=== PATIENT | female | born 1950 | race Caucasian/White ===

== ENCOUNTER 2017-08-06 20:28 | Inpatient (IN) | payer MEDICARE ==
[2017-08-06] MEDS ORDERED: SODIUM CHLORIDE 0.9% 500 ML IV STA (20:57)
[2017-08-06] MEDS ORDERED: ADENOSINE 3 MG/ML 2 ML VIAL IVP STA ×2 (20:57)
[2017-08-06] MEDS ORDERED: SODIUM CHLORIDE 0.9% 1,000 ML IV STA (20:57)
[2017-08-06] MEDS ORDERED: METOPROLOL TARTRATE 5 MG/5 ML VIAL IVP STA (20:59)
--- NOTE | 2017-08-06 21:07 | ED ---
Arrhythmia/Palpitations HPI - General Chief Complaint: Arrhythmia/Palpitations Stated Complaint: Palpatitions Time Seen by Provider: 08/06/17 20:50 Source: patient, RN notes reviewed Mode of arrival: ambulatory Limitations: no limitations - History of Present Illness Initial Comments: This is a 67-year-old female history of SVT in the past who states she had the onset around 1:30 today of palpitations and some lightheadedness and passed heart rate. She did take 2 of her beta blockers without any relief she denies any fevers chills nausea vomiting sweats she has had cold symptoms she did take some NyQuil earlier today. No other symptoms reported no other modifying factors. MD Complaint: rapid heart beat, palpitations - Related Data Home Medications Medication Instructions Recorded Confirmed Aspirin 325 - 650 mg PO QID PRN 08/06/17 08/06/17 Metoprolol Succinate (ER) [Toprol 25 mg PO DAILY PRN 08/06/17 08/06/17 Xl] Allergies Allergy/AdvReac Type Severity Reaction Status Date / Time No Known Allergies Allergy Verified 08/06/17 21:32 Review of Systems ROS Statement: Those systems with pertinent positive or pertinent negative responses have been documented in the HPI. ROS Other: All systems not noted in ROS Statement are negative. Past Medical History Past Medical History: Supraventricular Tachycardia (SVT) History of Any Multi-Drug Resistant Organisms: None Reported Past Surgical History: No Surgical Hx Reported Past Psychological History: No Psychological Hx Reported Smoking Status: Never smoker Past Alcohol Use History: None Reported Past Drug Use History: None Reported General Exam - General Exam Comments Initial Comments: This is a well-developed well-nourished awake alert oriented 3 female Limitations: no limitations General appearance: alert, in no apparent distress Head exam: Present: atraumatic, normocephalic, normal inspection Eye exam: Present: normal appearance, PERRL, EOMI. Absent: scleral icterus, conjunctival injection, periorbital swelling ENT exam: Present: normal exam, mucous membranes moist Neck exam: Present: normal inspection. Absent: tenderness, meningismus, lymphadenopathy Respiratory exam: Present: normal lung sounds bilaterally. Absent: respiratory distress, wheezes, rales, rhonchi, stridor Cardiovascular Exam: Present: normal rhythm, tachycardia. Absent: systolic murmur, diastolic murmur, rubs, gallop, clicks GI/Abdominal exam: Present: soft, normal bowel sounds. Absent: distended, tenderness, guarding, rebound, rigid Extremities exam: Present: normal inspection, full ROM, normal capillary refill. Absent: tenderness, pedal edema, joint swelling, calf tenderness Back exam: Present: normal inspection Neurological exam: Present: alert, oriented X3, CN II-XII intact Psychiatric exam: Present: normal affect, normal mood Skin exam: Present: warm, dry, intact, normal color. Absent: rash Course Vital Signs 08/06/17 08/06/17 08/06/17 20:35 21:02 21:21 Temperature 97.4 F L Pulse Rate 194 H 184 H 90 Respiratory 18 18 18 Rate Blood Pressure 99/68 88/63 O2 Sat by Pulse 100 98 99 Oximetry 08/06/17 08/06/17 08/06/17 21:52 22:03 23:12 Temperature Pulse Rate 90 94 100 Respiratory 18 18 18 Rate Blood Pressure 90/62 96/58 92/61 O2 Sat by Pulse 99 96 97 Oximetry 08/06/17 23:57 Temperature Pulse Rate 96 Respiratory 18 Rate Blood Pressure 106/61 O2 Sat by Pulse 97 Oximetry - Reevaluation(s) Reevaluation #1: 08/07/17 00:10 The patient received first 6 mg of adenosine followed by 12 mg of adenosine the 12 mg worked briefly with the patient did regain the ST-T configuration. Subsequently IV beta gato was given with control of the rate. Reevaluation #2: 08/07/17 00:11 The patient is feeling improved after control the rate hour the troponin is elevated. EKG Findings - EKG Results: EKG: interpreted by ERMD (Symmetric her tachycardia rate was 95 QRS 86 QT cyst QTc to 48/[address] configuration) Medical Decision Making - Medical Decision Making I did discuss findings the patient family the patient she will be admitted for evaluation of elevated troponin and the SVT. Patient currently is asymptomatic her blood pressure is slightly lower than what she normally has she states. The lower blood pressure may be due to the extra beta gato the patient ingested tonight. She is asymptomatic at this time no lightheadedness or dizziness no generalized weakness - Lab Data Result diagrams: 08/06/17 20:43 08/06/17 20:43 Lab Results 06/12/18 06/12/18 06/12/18 Range/Units 20:43 20:43 20:43 WBC 6.9 (3.8-10.6) k/uL RBC 4.25 (3.80-5.40) m/uL Hgb 13.8 (11.4-16.0) gm/dL Hct 41.4 (34.0-46.0) % MCV 97.3 (80.0-100.0) fL MCH 32.4 (25.0-35.0) pg MCHC 33.3 (31.0-37.0) g/dL RDW 14.0 (11.5-15.5) % Plt Count 288 (150-450) k/uL Neutrophils % 57 % Lymphocytes % 27 % Monocytes % 8 % Eosinophils % 3 % Basophils % 0 % Neutrophils # 3.9 (1.3-7.7) k/uL Lymphocytes # 1.9 (1.0-4.8) k/uL Monocytes # 0.6 (0-1.0) k/uL Eosinophils # 0.2 (0-0.7) k/uL Basophils # 0.0 (0-0.2) k/uL PT (9.0-12.0) sec INR (<1.2) APTT (22.0-30.0) sec Sodium 143 (137-145) mmol/L Potassium 4.3 (3.5-5.1) mmol/L Chloride 106 (98-107) mmol/L Carbon Dioxide 22 (22-30) mmol/L Anion Gap 15 mmol/L BUN 17 (7-17) mg/dL Creatinine 0.72 (0.52-1.04) mg/dL Est GFR (CKD-EPI)AfAm >90 (>60 ml/min/1.73 sqM) Est GFR (CKD-EPI)NonAf 87 (>60 ml/min/1.73 sqM) Glucose 146 H (74-99) mg/dL Calcium 8.2 L (8.4-10.2) mg/dL Magnesium 2.0 (1.6-2.3) mg/dL Total Bilirubin 0.3 (0.2-1.3) mg/dL AST 34 (14-36) U/L ALT 44 (9-52) U/L Alkaline Phosphatase 101 (38-126) U/L Total Creatine Kinase 59 (30-135) U/L CK-MB (CK-2) 0.8 (0.0-2.4) ng/mL CK-MB (CK-2) Rel Index 1.4 Troponin I 0.047 H* (0.000-0.034) ng/mL Total Protein 5.8 L (6.3-8.2) g/dL Albumin 3.1 L (3.5-5.0) g/dL TSH 6.020 H (0.465-4.680) mIU/L 08/06/17 Range/Units 20:43 WBC (3.8-10.6) k/uL RBC (3.80-5.40) m/uL Hgb (11.4-16.0) gm/dL Hct (34.0-46.0) % MCV (80.0-100.0) fL MCH (25.0-35.0) pg MCHC (31.0-37.0) g/dL RDW (11.5-15.5) % Plt Count (150-450) k/uL Neutrophils % % Lymphocytes % % Monocytes % % Eosinophils % % Basophils % % Neutrophils # (1.3-7.7) k/uL Lymphocytes # (1.0-4.8) k/uL Monocytes # (0-1.0) k/uL Eosinophils # (0-0.7) k/uL Basophils # (0-0.2) k/uL PT 12.7 H (9.0-12.0) sec INR 1.3 H (<1.2) APTT 24.9 (22.0-30.0) sec Sodium (137-145) mmol/L Potassium (3.5-5.1) mmol/L Chloride (98-107) mmol/L Carbon Dioxide (22-30) mmol/L Anion Gap mmol/L BUN (7-17) mg/dL Creatinine (0.52-1.04) mg/dL Est GFR (CKD-EPI)AfAm (>60 ml/min/1.73 sqM) Est GFR (CKD-EPI)NonAf (>60 ml/min/1.73 sqM) Glucose (74-99) mg/dL Calcium (8.4-10.2) mg/dL Magnesium (1.6-2.3) mg/dL Total Bilirubin (0.2-1.3) mg/dL AST (14-36) U/L ALT (9-52) U/L Alkaline Phosphatase (38-126) U/L Total Creatine Kinase (30-135) U/L CK-MB (CK-2) (0.0-2.4) ng/mL CK-MB (CK-2) Rel Index Troponin I (0.000-0.034) ng/mL Total Protein (6.3-8.2) g/dL Albumin (3.5-5.0) g/dL TSH (0.465-4.680) mIU/L - Radiology Data Radiology results: report reviewed (I did review the imaging and reports no acute findings), image reviewed Critical Care Time Critical Care Time: Yes Critical Care Time: 35 minutes of critical care time which includes initial presentation with history physical labs x-rays multiple re-evaluations the patient response to therapy discuss with the patient family regarding findings discussion with the admission physician documentation of the above Disposition Clinical Impression: Supraventricular tachycardia, Hypotensive episode, Elevated troponin I level Disposition: ADMITTED IP TO THIS [facility] Condition: Stable Referrals: None,Stated [Primary Care Provider] - 1-2 days
[2017-08-06 21:08] LABS: Basophils % (A) 0 %; Eosinophils # (A) 0.2 k/uL (0-0.7); Eosinophils % (A) 3 %; HCT 41.4 % (34.0-46.0); HGB 13.8 gm/dL (11.4-16.0); Lymphocytes # (A) 1.9 k/uL (1.0-4.8); Lymphocytes % (A) 27 %; MCH 32.4 pg (25.0-35.0); MCHC 33.3 g/dL (31.0-37.0); MCV 97.3 fL (80.0-100.0); Mean Platelet Volume 7.4; Monocytes # (A) 0.6 k/uL (0-1.0); Monocytes % (A) 8 %; Neutrophils # (A) 3.9 k/uL (1.3-7.7); Neutrophils % (A) 57 %; Platelet Count 288 k/uL (150-450); RBC 4.25 m/uL (3.80-5.40); WBC 6.9 k/uL (3.8-10.6)
[2017-08-06 21:18] LABS: INR 1.3 (<1.2); Partial Thromboplastin Time 24.9 sec (22.0-30.0); Prothrombin Time 12.7 sec (9.0-12.0)
--- NOTE | 2017-08-06 21:20 | XR ---
EXAMINATION TYPE: XR chest 2V DATE OF EXAM: 08/06/2017 COMPARISON: NONE HISTORY: Palpitations. Dyspnea. TECHNIQUE: Frontal and lateral views of the chest are obtained. FINDINGS: There is no heart failure nor confluent pneumonic infiltrate. There are chest leads. Costo phrenic angles are clear. Thoracic aorta is atheromatous. Bony thorax is intact. IMPRESSION: No active cardiopulmonary disease. Normal heart.
[2017-08-06 21:22] LABS: ALT 44 U/L (9-52); AST 34 U/L (14-36); Albumin 3.1 g/dL (3.5-5.0); Alkaline Phosphatase 101 U/L (38-126); Anion Gap 15 mmol/L; Blood Urea Nitrogen 17 mg/dL (7-17); Calcium 8.2 mg/dL (8.4-10.2); Carbon Dioxide 22 mmol/L (22-30); Chloride 106 mmol/L (98-107); Glucose 146 mg/dL (74-99); Potassium 4.3 mmol/L (3.5-5.1); Sodium 143 mmol/L (137-145); Total Bilirubin 0.3 mg/dL (0.2-1.3); Total Protein 5.8 g/dL (6.3-8.2)
[2017-08-06 21:42] LABS: Creatine Kinase MB 0.8 ng/mL (0.0-2.4)
[2017-08-06 21:45] LABS: Troponin I 0.047 ng/mL (0.000-0.034)
[2017-08-07] MEDS ORDERED: NALOXONE 0.4 MG/ML 1 ML VIAL IV PRN (00:17)
[2017-08-07] MEDS ORDERED: METOPROLOL SUCCINATE (ER) 25 MG TAB.ER.24H PO PRN (00:21)
[2017-08-07] MEDS ORDERED: NITROGLYCERIN SL TABS 0.4 MG TAB SUBLINGUAL PRN (00:22)
[2017-08-07] MEDS ORDERED: HEPARIN SODIUM,PORCINE 5,000 UNIT/ML 1 ML VIAL IV ONE (00:22)
[2017-08-07] MEDS ORDERED: HEPARIN SODIUM,PORCINE/D5W PMX 25,000 UNIT in DEXTROSE/WATER 1 500ML.BAG IV SCH (00:30)
--- NOTE | 2017-08-07 00:39 | P.HPIM ---
History of Present Illness H&P Date: 08/07/17 Chief Complaint: Palpitations heart racing The patient is a 67-year-old female with a past medical history of paroxysmal SVTs who presents to the ER chief complaint of feeling like her heart is racing, she denies any chest pain, she reports her symptoms began approximately 1:30 PM and woke her from sleep, she denies any associated shortness of breath but does report episodes of lightheadedness, she denies any focal weakness slurred speech, or facial droop. The patient does report approximately 4 day history of cold-like symptoms described as runny nose sore throat and head congestion, she denies any subjective fevers chills or night sweats. She reports taking some NyQuil prior to the onset of her symptoms. The patient does report that she took additional doses of her metoprolol, she reports that she's been hospitalized approximately 3 previous times for similar complaints and also states that she has been taking magnesium supplements which seemed to have helped significantly. In the ER presentation the patient was noted to be SVTs with a heart rate in the mid 180s, she was given 2 doses of adenosine and IV metoprolol and a liter of IV fluids. Workup included admission labs patient was noted to have elevated serum troponin at .047 and TSH 6.020 and serum magnesium of 2.0. Checks x-ray showed no acute cardiopulmonary process Review of Systems All other 12 point review of systems are negative except for HPI Past Medical History Past Medical History: Supraventricular Tachycardia (SVT) History of Any Multi-Drug Resistant Organisms: None Reported Past Surgical History: No Surgical Hx Reported Past Psychological History: No Psychological Hx Reported Smoking Status: Never smoker Past Alcohol Use History: None Reported Past Drug Use History: None Reported Medications and Allergies Home Medications Medication Instructions Recorded Confirmed Type Aspirin 325 - 650 mg PO QID PRN 08/06/17 08/06/17 History Metoprolol Succinate (ER) [Toprol 25 mg PO DAILY PRN 08/06/17 08/06/17 History Xl] Allergies Allergy/AdvReac Type Severity Reaction Status Date / Time No Known Allergies Allergy Verified 08/06/17 21:32 Physical Exam Vitals: Vital Signs Temp Pulse Resp BP Pulse Ox 08/06/17 23:57 96 18 106/61 97 08/06/17 23:12 100 18 92/61 97 08/06/17 22:03 94 18 96/58 96 08/06/17 21:52 90 18 90/62 99 08/06/17 21:21 90 18 88/63 99 08/06/17 21:02 184 H 18 99/68 98 08/06/17 20:35 97.4 F L 194 H 18 100 Intake and Output 08/06/17 08/06/17 08/07/17 14:59 22:59 06:59 Other: Weight 45.359 kg Constitutional: No acute distress, conversant, pleasant Eyes: Anicteric sclerae, moist conjunctiva, no lid-lag, PERRLA ENMT: NC/AT,Oropharynx clear, no erythema, exudates Neck:Supple, FROM, no masses, or JVD, No carotid bruits; No thyromegaly Lungs: Clear to auscultation, Clear to percussion, Normal respiratory effort, no accessory muscle use Cardiovascular: Heart regular in rate and rhythm, No murmurs, gallops, or rubs no peripheral edema Abdominal: Soft Nontender, nom distended, no guarding, no rebound or rigidity, Normoactive bowel sounds No hepatomegaly, No splenomegaly, No palpable mass No abdominal wall hernia noted Skin: Normal temperature, tone, texture, turgor, No induration No subcutaneous nodules, No rash, lesions, No ulcers Extremities:No digital cyanosis No clubbing, Pedal pulses intact and symmetrical Radial pulses intact and symmetrical Normal gait and station, No calf tenderness Psychiatric: Alert and oriented to person, place and time, Appropriate affect Intact judgement Neuro: Muscles Strength 5/5 in all 4 extremities, Sensation to light touch grossly present throughout, Cranial nerves II-XII grossly intact. No focal sensory deficits Results CBC & Chem 7: 08/06/17 20:43 08/06/17 20:43 Labs: Abnormal Lab Results - Last 24 Hours (Table) 08/06/17 08/06/17 08/06/17 Range/Units 20:43 20:43 20:43 PT 12.7 H (9.0-12.0) sec INR 1.3 H (<1.2) Glucose 146 H (74-99) mg/dL Calcium 8.2 L (8.4-10.2) mg/dL Troponin I 0.047 H* (0.000-0.034) ng/mL Total Protein 5.8 L (6.3-8.2) g/dL Albumin 3.1 L (3.5-5.0) g/dL TSH 6.020 H (0.465-4.680) mIU/L Assessment and Plan (1) Supraventricular tachycardia Current Visit: Yes Status: Acute Code(s): I47.1 - SUPRAVENTRICULAR TACHYCARDIA SNOMED Code(s): 9106729 (2) Hypotensive episode Current Visit: Yes Status: Acute Code(s): I95.9 - HYPOTENSION, UNSPECIFIED SNOMED Code(s): 27715955 (3) Elevated troponin I level Current Visit: Yes Status: Acute Code(s): R74.8 - ABNORMAL LEVELS OF OTHER SERUM ENZYMES SNOMED Code(s): 386575466 Plan: The patient is admitted to the telemetry unit after presenting with SVT anticipated greater than 2 midnight stay, the patient was given 2 doses of adenosine in the ER along with IV metoprolol and a liter of fluids after she was noted to be hypotensive. Given the fact that the patient had elevated serum troponin I started her on IV heparin and will continue to cycle her troponins. Her TSH is elevated we'll order a free T3-T4 and check a 2-D echocardiogram. We'll plan to consult cardiology control clerk subassembly Dr. Stuart for further recommendations. We'll plan to continue the patient's home oral metoprolol and continue to follow her clinical course.
[2017-08-07] MEDS: SODIUM CHLORIDE 0.9% 1,000 ML IV SCH ×2 (00:51→14:30)
[2017-08-07] MEDS: ACETAMINOPHEN TAB 325 MG TAB PO PRN ×3 (03:54→17:52)
[2017-08-07] MEDS ORDERED: PANTOPRAZOLE 40 MG/10 ML VIAL IV SCH (09:00)
[2017-08-07] MEDS ORDERED: ASPIRIN 325 MG TAB PO SCH (09:00)
--- NOTE | 2017-08-07 09:08 | CONS ---
CONSULTATION This is a 67-year-old female who recently moved from [place] to [place] about a year back. She presented to the hospital with sustained palpitations with dizziness. She denied any chest discomfort. This began at about 1:30 and woke her up from her sleep. She has had cold-like symptoms for about the last 4 days, but no fever or chills. No cough. She has been taking some NyQuil. She takes metoprolol. She took additional dose of metoprolol, but this did not help. Past history of supraventricular tachycardia. She has had hundreds of episodes at least one definite episode of loss of consciousness, but during these episodes, she gets dizzy and lightheaded and feels warm. More importantly, she at this time her troponins were elevated and her TSH is also elevated (hypothyroidism). REVIEW OF SYSTEMS: She has no fever, chills, or rigors, but she has a runny nose and has a cold. No cough or expectoration. No nausea, vomiting, or diarrhea. No hematuria or dysuria. No strokes or seizures. She has palpitations. PAST MEDICAL HISTORY: Past medical history of SVT. No diabetes. No hypertension. Denies dyslipidemia. SOCIAL HISTORY: Never smoker. Alcohol, no significant alcohol use. MEDICATIONS: Medications at home include metoprolol succinate 25 mg p.o. daily. ALLERGIES: No known drug allergies. PHYSICAL EXAMINATION: On examination, her blood pressure is 106/61 mmHg, when she was here during SVT, her blood pressure was 88 mmHg consistent with the symptoms of dizziness and feeling warm and fuzzy. Her weight is 45 kilos. No JVD. No thyromegaly. No carotid bruits. Heart sounds S1, S2 are normal. No murmurs, no gallops, no rub. Breath sounds are clear. No rhonchi, no crackles. ABDOMEN: Soft, nontender. Extremities are warm. No edema. A 12-lead ECG shows supraventricular tachycardia with terminal P waves and a Wellens' sign consistent with AV imelda reentry. There is ST depression inferolaterally. Her 12-lead ECG during sinus rhythm following IV adenosine use shows normal MO, narrow QRS, normal ST segments. Heart rate 118 beats a minute. LABS: Labs were reviewed. Hemoglobin 13.8. Electrolytes are normal. Calcium is 8.2. Troponin 0.47 and 0.98. TSH is elevated at 6.02. IMPRESSION: 1. Recurrent supraventricular tachycardia. Patient has had hundreds of episodes associated with presyncope, one episode of syncope in the past. 2. Troponin leak consistent with myocardial injury secondary to supraventricular tachycardia. Notes no ST changes while in sinus rhythm. The patient is pain-free at this time. 3. The supraventricular tachycardia was adenosine sensitive was consistent with AV imelda reentry. 4. Elevated TSH, likely subclinical hypothyroidism. SUGGEST: Lipid panel, increase metoprolol to 50 mg p.o. daily, third troponin and 2D echo and Doppler study and observation on telemetry . MMODL / IJN: [id number] /
[2017-08-07] MEDS: ASPIRIN 81 MG PO SCH (11:06)
[2017-08-07] MEDS: METOPROLOL SUCCINATE (ER) 50 MG TAB.ER.24H PO SCH (11:06)
[2017-08-07 11:49] LABS: T4, Free (Free Thyroxine) 1.13 ng/dL (0.78-2.19)
--- NOTE | 2017-08-07 12:03 | ECHOF ---
Referral Reason:abnormal troponins MEASUREMENTS -------- HEIGHT: 160.0 cm WEIGHT: 45.4 kg BP: 101/62 RVIDd: 3.3 cm (< 3.3) IVSd: 0.9 cm (0.6 - 1.1) LVIDd: 4.3 cm (3.9 - 5.3) LVPWd: 0.9 cm (0.6 - 1.1) IVSs: 1.3 cm LVIDs: 2.8 cm LVPWs: 1.4 cm LA Diam: 2.9 cm (2.7 - 3.8) LAESV Index (A-L): 27.56 ml/m Ao Diam: 3.2 cm (2.0 - 3.7) AV Cusp: 2.1 cm (1.5 - 2.6) MV EXCURSION: 13.536 mm (> 18.000) MV EF SLOPE: 126 mm/s (70 - 150) EPSS: 0.3 cm MV E Gallo: 0.84 m/s MV DecT: 186 ms MV A Gallo: 0.56 m/s MV E/A Ratio: 1.51 RAP: 5.00 mmHg RVSP: 25.55 mmHg FINDINGS -------- Sinus rhythm. This was a technically good study. The left ventricular size is normal. Left ventricular wall thickness is normal. Overall left vent ricular systolic function is normal with, an EF between 55 - 60 %. The right ventricle is mildly enlarged. Normal LA size by volume 22+/-6 ml/m2. The right atrium is normal in size. The aortic valve is trileaflet and appears structurally normal. The mitral valve is normal. Mild tricuspid regurgitation present. Right ventricular systolic pressure is normal at < 35 mmHg. Trace/mild (physiologic) pulmonic regurgitation. The aortic root size is normal. Normal inferior vena cava with normal inspiratory collapse consistent with estimated right atrial pre ssure of 5 mmHg. There is no pericardial effusion. CONCLUSIONS -------- 1. Sinus rhythm. 2. This was a technically good study. 3. The left ventricular size is normal. 4. Left ventricular wall thickness is normal. 5. Overall left ventricular systolic function is normal with, an EF between 55 - 60 %. 6. The right ventricle is mildly enlarged. 7. Normal LA size by volume 22+/-6 ml/m2. 8. The right atrium is normal in size. 9. The aortic valve is trileaflet and appears structurally normal. 10. The mitral valve is normal. 11. Mild tricuspid regurgitation present. 12. Right ventricular systolic pressure is normal at < 35 mmHg. 13. Trace/mild (physiologic) pulmonic regurgitation. 14. The aortic root size is normal. 15. Normal inferior vena cava with normal inspiratory collapse consistent with estimated right atrial pressure of 5 mmHg. 16. There is no pericardial effusion. EXTRACTOR PULLER: Shabnam Puente RDCS
--- NOTE | 2017-08-07 13:04 | P.PN ---
Subjective Progress Note Date: 08/07/17 Principal diagnosis: SVT Patient is feeling okay this morning, no chest pain or shortness of breath. No palpitations. Objective - Vital Signs Vital signs: Vital Signs Temp 98.0 F 08/07/17 08:30 Pulse 77 08/07/17 08:30 Resp 18 08/07/17 08:30 BP 95/50 08/07/17 08:30 Pulse Ox 98 08/07/17 08:30 Intake & Output 08/06/17 08/07/17 08/07/17 18:59 06:59 18:59 Weight 45.359 kg - Exam Constitutional: No acute distress, conversant, pleasant Eyes:Anicteric sclerae, moist conjunctiva, no lid-lag, PERRLA, ENMT: Oropharynx clear, no erythema, exudates Neck: Supple, FROM, no masses, or JVD, No carotid bruits, No thyromegaly Lungs: Clear to auscultation, Clear to percussion, Normal respiratory effort, no accessory muscle use Cardiovascular: Heart regular in rate and rhythm, No murmurs, gallops, or rubs, No peripheral edema Abdominal: Soft, Nontender, no guarding, rebound or rigidity, Normoactive bowel sounds, No hepatomegaly, No splenomegaly, No palpable mass Skin: Normal temperature, tone, texture, turgor, no induration, No subcutaneous nodules, No rash, lesions, No ulcers Extremities: No digital cyanosis, No clubbing, Pedal pulses intact and symmetrical, Radial pulses intact and symmetrical, No calf tenderness Psychiatric: Alert and oriented to person, place and time, appropriate affect, intact judgement Neuro: Muscles Strength 5/5 in all 4 extremities, Sensation to light touch grossly present throughout, Cranial nerves II-XII grossly intact, no focal sensory deficits - Labs CBC & Chem 7: 08/06/17 20:43 08/06/17 20:43 Labs: Abnormal Lab Results - Last 24 Hours (Table) 08/06/17 08/06/17 08/06/17 Range/Units 20:43 20:43 20:43 PT 12.7 H (9.0-12.0) sec INR 1.3 H (<1.2) APTT (22.0-30.0) sec D-Dimer (<0.60) mg/L FEU Glucose 146 H (74-99) mg/dL Calcium 8.2 L (8.4-10.2) mg/dL Troponin I 0.047 H* (0.000-0.034) ng/mL Total Protein 5.8 L (6.3-8.2) g/dL Albumin 3.1 L (3.5-5.0) g/dL TSH 6.020 H (0.465-4.680) mIU/L 08/07/17 08/07/17 08/07/17 Range/Units 03:35 06:42 08:31 PT (9.0-12.0) sec INR (<1.2) APTT 47.5 H (22.0-30.0) sec D-Dimer (<0.60) mg/L FEU Glucose (74-99) mg/dL Calcium (8.4-10.2) mg/dL Troponin I 0.098 H* 0.087 H* (0.000-0.034) ng/mL Total Protein (6.3-8.2) g/dL Albumin (3.5-5.0) g/dL TSH (0.465-4.680) mIU/L 08/07/17 Range/Units 11:55 PT (9.0-12.0) sec INR (<1.2) APTT (22.0-30.0) sec D-Dimer 1.01 H (<0.60) mg/L FEU Glucose (74-99) mg/dL Calcium (8.4-10.2) mg/dL Troponin I (0.000-0.034) ng/mL Total Protein (6.3-8.2) g/dL Albumin (3.5-5.0) g/dL TSH (0.465-4.680) mIU/L Assessment and Plan Plan: #1 Recurrent acute supraventricular tachycardia with AV imelda reentry: Likely secondary to the recent cold Seen by cardiology Metoprolol dose increased D-dimer elevated, we'll order CT angiogram of the chest to rule out PE Troponin slightly elevated, likely leak secondary to the tachycardia, no further workup needed per cardio #2 Elevated TSH: Awaiting free T4
--- NOTE | 2017-08-07 13:36 | CT ---
EXAMINATION TYPE: CT angio chest DATE OF EXAM: 08/07/2017 COMPARISON: NONE HISTORY: Elevated heart rate. CT DLP: 371 mGycm. Automated Exposure Control for Dose Reduction was Utilized. CONTRAST: CTA scan of the thorax is performed with IV Contrast, patient injected with 73 mL of Isovue 370, pulm onary embolism protocol. MIP Images are created on CT scanner and reviewed. FINDINGS: LUNGS: There is mild biapical pleural parenchymal scarring. Additionally linear scarring is seen at t he lung bases dependently. The lungs are grossly clear, there is no concerning parenchymal mass or no dule identified. There is no pleural effusion or pneumothorax seen. The tracheobronchial tree is p atent. MEDIASTINUM: There is satisfactory enhancement of the pulmonary artery and its branches, there is no CT evidence for pulmonary embolism. There are no greater than 1 cm hilar or mediastinal lymph nodes. No cardiomegaly or pericardial effusion is seen. OTHER: There is a small hiatal hernia noted. Mild multilevel degenerative changes are seen of the tho racic spine. IMPRESSION: No evidence of pulmonary embolus. No focal dilation, pleural effusion or pneumothorax.
[2017-08-07] MEDS ORDERED: BENZOCAINE/MENTHOL LOZENG 1 EACH LOZENGE MUCOUS MEM PRN (20:42)
[2017-08-07] MEDS: KETOROLAC 30 MG/ML 1 ML VIAL IVP SCH (22:49)
[2017-08-08] MEDS: SODIUM CHLORIDE 0.9% 1,000 ML IV SCH ×2 (02:56→14:46)
[2017-08-08 06:36] VITALS: BP 104/62; PULSE 81; RESP 16; TEMP 99.4
[2017-08-08] MEDS: ASPIRIN 81 MG PO SCH (08:32)
[2017-08-08] MEDS: METOPROLOL SUCCINATE (ER) 50 MG TAB.ER.24H PO SCH (08:32)
[2017-08-08] MEDS: KETOROLAC 30 MG/ML 1 ML VIAL IVP SCH ×2 (08:44→14:42)
[2017-08-08 10:36] VITALS: BMI 17.4
--- NOTE | 2017-08-08 13:43 | P.PN ---
Subjective Mrs. Person is seen and examined resting comfortably in bed. Telemetry tracings indicate she has maintained sinus mechanism since converting yesterday in ED. Blood pressure 104/62 heart rate 81 afebrile maintaining oxygen saturation on room air. Echo cardiogram performed reveals preserved left ventricular systolic function with ejection fraction 55-60%. No evidence of valvular heart disease. CT angios performed is negative for pulmonary embolism. Objective - Vital Signs Vital signs: Vital Signs Temp 99.4 F 08/08/17 06:35 Pulse 81 08/08/17 06:35 Resp 16 08/08/17 06:35 BP 104/62 08/08/17 06:35 Pulse Ox 96 08/08/17 06:35 Intake & Output 08/07/17 08/08/17 08/08/17 18:59 06:59 18:59 Intake Total 240 Balance 240 Weight 44.5 kg 44.5 kg Intake: Oral 240 Other: # Voids 2 2 - Exam GENERAL: Well-appearing, well-nourished and in no acute distress. NECK: Supple without JVD or thyromegaly. LUNGS: Breath sounds clear to auscultation bilaterally. Respiration equal and unlabored. No wheezes, rales or rhonchi. HEART: Regular rate and rhythm without murmurs, rubs or gallops. S1 and S2 heard. EXTREMITIES: Normal range of motion, no edema. No clubbing or cyanosis. Peripheral pulses intact and strong. - Labs CBC & Chem 7: 08/06/17 20:43 08/06/17 20:43 Assessment and Plan Assessment: ASSESSMENT 1. Recurrent supraventricular tachycardia. Maintaining sinus mechanism after adenosine conversion. 2. Mild troponin leak consistent with injury secondary to SVT. 3. Elevated TSH subclinical hypothyroidism. PLAN Stable from a cardiac perspective to go home on Toprol 50 mg daily. Follow-up with Dr. Salvador in the office in 2 weeks. Discussion was had regarding possibility of ablation as an outpatient. Nurse Practitioner note has been reviewed, I agree with a documented findings and plan of care. Patient was seen and examined.
--- NOTE | 2017-08-09 07:57 | P.DS ---
Providers Date of admission: 08/07/17 00:23 Expected date of discharge: 08/08/17 Attending physician: Og Huynh MD Consults: 08/07/17 00:19 Consult Physician Routine Consulting Provider: Edith Stuart Consult Reason/Comments: Elevated troponin, PSVT Do you want consulting provider notified?: Yes 08/07/17 00:22 Consult Physician Routine Consulting Provider: Edith Stuart Consult Reason/Comments: SVTS Do you want consulting provider notified?: Yes Primary care physician: Stated None Hospital Course: 67-year-old female with a past medical history of paroxysmal SVTs who presented to the ER chief complaint of feeling like her heart is racing, she denied any chest pain, shortness of breath but does report episodes of lightheadedness. No focal weakness slurred speech, or facial droop. The patient did report approximately 4 day history of cold-like symptoms described as runny nose, sore throat and head congestion, she denied any subjective fevers, chills or night sweats. She reported taking some NyQuil prior to the onset of her symptoms. The patient did report that she took additional doses of her metoprolol. She was hospitalized approximately 3 previous times for similar complaints and also stated that she has been taking magnesium supplements which seemed to have helped significantly. In the ER patient was noted to have SVTs with a heart rate in the mid 180s, she was given 2 doses of adenosine and IV metoprolol and a liter of IV fluids and that converted her back to SR. Laboratory workup was essentially unremarkable except for mildly elevated troponin at .047, TSH 6.020 and serum magnesium of 2.0. Checks x-ray showed no acute cardiopulmonary process. Patient was subsequently admitted to the hospital for observation, she was placed on telemetry. She was evaluated by cardiology service who recommended doing an echocardiogram which showed normal EF. Her troponins were cycled and remained flat. The troponin leak was thought to be secondary to the SVT. Cardiology advised increasing her metoprolol dose to 50 mg daily. Because TSH was slightly elevated she had free T4 sent which came back within normal limits indicating mild subclinical hypothyroidism. No treatment is indicated for that. Throughout the hospitalization patient did not have any recurrent episodes of SVT, she was cleared by cardiology for discharge. She will need to follow up in the office with Dr. Dupree to look into doing an AV ablation to cure the SVT. She was eventually discharged home in a stable condition. Discharge diagnoses Recurrent SVT Mild troponin leak likely secondary to above Upper respiratory infection Patient Condition at Discharge: Stable Plan - Discharge Summary Discharge Rx Participant: No New Discharge Prescriptions: New Acetaminophen Tab [Tylenol] 650 mg PO Q6HR PRN tab PRN Reason: Mild Pain Or Fever > 100.5 Metoprolol Succinate (ER) [Toprol XL] 50 mg PO DAILY #30 tab.er.24h Continue Aspirin 325 - 650 mg PO QID PRN PRN Reason: Cold Symptoms Discontinued Metoprolol Succinate (ER) [Toprol Xl] 25 mg PO DAILY PRN PRN Reason: HEART PALPITATIONS Discharge Medication List Aspirin 325 - 650 mg PO QID PRN 08/06/17 [History] Acetaminophen Tab [Tylenol] 650 mg PO Q6HR PRN tab 08/08/17 [Rx] Metoprolol Succinate (ER) [Toprol XL] 50 mg PO DAILY #30 tab.er.24h 08/08/17 [Rx ] Follow up Appointment(s)/Referral(s): Forest Dupree MD [STAFF PHYSICIAN] - 08/21/17 3:15 pm () None,Stated [Primary Care Provider] - 1-2 days (Pt will find primary care doctor , new to area. List of local doctors provided,.) Patient Instructions/Handouts: Supraventricular Tachycardia (DC) Activity/Diet/Wound Care/Special Instructions: Cardiac diet. Activity as tolerated. Discharge Disposition: HOME SELF-CARE
== END 2017-08-08 15:43 | disposition home or self-care (01) | DRG 310 ==
LOC: EC 20:28 → 6SEL 08-07 00:23 → 4MS4W 08-07 15:29
PROVIDERS: ADMIT Family Medicine; ATTEND Family Medicine
DX: I47.1 Supraventricular tachycardia (principal); I95.9 Hypotension, unspecified; E03.9 Hypothyroidism, unspecified; J06.9 Acute upper respiratory infection, unspecified; R77.9 Abnormality of plasma protein, unspecified; Z79.82 Long term (current) use of aspirin; Z79.899 Other long term (current) drug therapy
CPT/HCPCS: 36415; 71046; 71275; 80053; 82550; 82553; 83735; 84439; 84443; 84481; 84484; 85025; 85379; 85610; 85730; 93005; 93306; 96361; 96365; 96366; 96375; 96376; 99291

== ENCOUNTER 2017-08-16 | Emergency (ER) | payer MEDICARE | END 2017-08-16 19:07 | disposition left against medical advice (07) | DX: I49.9 Cardiac arrhythmia, unspecified (principal); Z82.49 Family history of ischemic heart disease and other diseases of the circulatory system ==

== ENCOUNTER → 2017-09-24 | Outpatient (CLI) | payer MEDICARE ==
[2017-09-24 11:03] LABS: HCT 39.5 % (34.0-46.0); HGB 12.5 gm/dL (11.4-16.0); MCH 31.2 pg (25.0-35.0); MCHC 31.7 g/dL (31.0-37.0); MCV 98.3 fL (80.0-100.0); Mean Platelet Volume 7.3; Platelet Count 235 k/uL (150-450); RBC 4.02 m/uL (3.80-5.40); RDW 14.1 % (11.5-15.5); WBC 3.7 k/uL (3.8-10.6)
[2017-09-24 11:14] LABS: Anion Gap 5 mmol/L; Blood Urea Nitrogen 20 mg/dL (7-17); Carbon Dioxide 27 mmol/L (22-30); Chloride 107 mmol/L (98-107); Glucose 71 mg/dL (74-99); Potassium 4.7 mmol/L (3.5-5.1); Sodium 139 mmol/L (137-145)
== END | disposition home or self-care (01) ==
LOC: LABPAT 10:01
PROVIDERS: ATTEND Internal Medicine Clinical Cardiac Electrophysiology
DX: Z01.812 Encounter for preprocedural laboratory examination (principal); I47.1 Supraventricular tachycardia; R74.8 Abnormal levels of other serum enzymes
CPT/HCPCS: 36415; 80051; 82565; 82947; 84520; 85027

== ENCOUNTER 2017-09-30 10:58 | Day surgery (SDC) | payer MEDICARE ==
[2017-09-20 11:44] VITALS: BMI 18.8
[2017-09-30] MEDS ORDERED: fentaNYL (PF) 50 MCG/ML 2 ML AMP ONE (12:33)
[2017-09-30] MEDS ORDERED: ISOPROTERENOL 250 MCG/1.25 ML SYR IV ONE (12:33)
[2017-09-30] MEDS ORDERED: MIDAZOLAM 2 MG/2 ML VIAL ONE (12:33)
[2017-09-30] MEDS ORDERED: PROPOFOL 10 MG/ML 20 ML VIAL IV ONE (12:33)
[2017-09-30] MEDS ORDERED: IV FLUID CONTINUATION 950 ML IV ONE (12:33)
[2017-09-30] MEDS ORDERED: LIDOCAINE 1% INJ 10MG/ML (20 ML MDV) SQ ONE (13:05)
[2017-09-30] MEDS ORDERED: ACETAMINOPHEN IV (For NPO) 1,000 MG in EMPTY BAG 1 BAG IVPB ONE (14:33)
[2017-09-30] MEDS ORDERED: HYDROcodone/APAP 5-325MG 1 EACH TAB PO PRN (14:33)
[2017-09-30] MEDS ORDERED: ACETAMINOPHEN TAB 325 MG TAB PO PRN (14:33)
--- NOTE | 2017-09-30 14:59 | CE ---
CARDIAC ELECTROPHYSIOLOGY REPORT Isis Person is a 67-year-old female patient of Dr. Eladia Whiting and myself, who has recurrent palpitations despite beta blockers and was quite symptomatic from this. She is drug refractory. She was brought in for diagnostic EP study and radiofrequency ablation. Patient was brought to the EP lab in a fasting state. Written informed consent was obtained prior to the procedure. Both groins were prepped and draped as per protocol. Two venous sheaths were placed in the each groin and via these, diagnostic catheters were placed in the high right atrium, His bundle area, RV and coronary sinus. A full EP study was performed. Sinus cycle length 872 milliseconds, VT interval 151 milliseconds, QRS 101 milliseconds, QT 416 milliseconds. AH interval 82 milliseconds, HV interval 41 milliseconds. Sinus node recovery times of 600, 500, and 400 milliseconds were 1370, 1226 and 851 milliseconds. AV node Wenckebach block 330 milliseconds, VA Wenckebach block 360 milliseconds. SVT was easily inducible. During straight pacing from the high right atrium. The SVT cycle length was about 360 milliseconds. The septal VA times were short. Ventricular pacing was attempted on multiple occasions, but this would terminate the tachycardia and therefore we could not entrain the tachycardia. Para Hisian pacing was performed and a imelda response was noted. A long sheath was then placed and an RF ablation catheter was placed 4 mm tip. The slow pathway was mapped. A 3D mapping was performed. The His cloud was mapped and the coronary sinus os was mapped. Tricuspid anulus was mapped. Slow pathway monitoring was performed. RF ablation was performed. Good power and good temperatures were used and this resulted in complete elimination of the slow pathway. There was no evidence for slow pathway at the end of the ablation. There was no slow pathway evident with straight pacing and occasional echo beat was noted with extra stimulation on Isuprel. High-dose Isuprel was used and extra stimulation from multiple sites was performed from the high right atrium and from multiple sites in the coronary sinus. Ventricular pacing was performed. Ventricular extra stimulation was performed. A very occasional echo beats were noted. No SVT was induced. Straight pacing was performed from [address]-T was induced. All catheters were then removed and the patient was transferred back to telemetry. 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 Very occasional single echo beats noted on high-dose Isuprel. The patient tolerated the procedure well without any acute complications. MMODL / IJN: [id number] /
[2017-09-30] MEDS ORDERED: ACETAMINOPHEN IV (For NPO) 700 MG in EMPTY BAG 1 BAG IVPB ONE (15:15)
[2017-09-30] MEDS: SODIUM CHLORIDE 0.9% 1,000 ML IV SCH (16:06)
[2017-09-30] MEDS ORDERED: ATORVASTATIN 20 MG TAB PO SCH (21:00)
[2017-10-01 00:06] VITALS: RESP 16
[2017-10-01] MEDS: SODIUM CHLORIDE 0.9% 1,000 ML IV SCH (05:49)
[2017-10-01] MEDS ORDERED: ASPIRIN 81 MG PO SCH (09:00)
[2017-10-01 12:26] VITALS: BP 104/69; PULSE 72; TEMP 98.9
--- NOTE | 2017-10-01 15:06 | P.DS ---
Providers Attending physician: Forest Dupree Primary care physician: [facility] Course: Patient is doing well following SVT ablation. The groins are healed well there is minimal swelling no pain no hematoma No chest pain no dizziness lightheadedness palpitations She's ablating the hallways. 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 Salvador in 2-3 weeks Plan - Discharge Summary Discharge Rx Participant: No New Discharge Prescriptions: Continue Aspirin EC [Ecotrin Low Dose] 81 mg PO DAILY Atorvastatin [Lipitor] 20 mg PO HS Discharge Medication List Aspirin EC [Ecotrin Low Dose] 81 mg PO DAILY 08/16/17 [History] Atorvastatin [Lipitor] 20 mg PO HS 09/20/17 [History] Follow up Appointment(s)/Referral(s): Forest Dupree MD [Primary Care Provider] - 3 Weeks (Office will call patient at home.) Patient Instructions/Handouts: Cardiac Ablation (DC) Activity/Diet/Wound Care/Special Instructions: Post EP study - Ablation instructions 1. Keep access sites dry for 2 days. 2. No heavy lifting or straining for 2 days. 3. Avoid bending the hips repeatedly for 2 days. 4. You may go up and down stairs slowly Call if the following is noted 1. Bleeding, increasing swelling or pain at the access sites. 2. Increasing chest discomfort, especially upon taking a deep breath. 3. Increasing shortness of breath, at rest or with exertion. 4. Undue cough / phlegm 5. Difficulty or pain while swallowing. 6. Pain or change in color in the extremities. 7. Fever, chills, rigors. 8. Increasing headache or neurologic symptoms. 9. Dizziness, fainting, palpitations Stop metoprolol Continue aspirin Continue atorvastatin Discharge Disposition: HOME SELF-CARE
== END 2017-10-01 14:26 | disposition home or self-care (01) ==
LOC: CATHEP 10:58 → 3OBS 14:13 → CATHEP 10-01 14:26
PROVIDERS: ATTEND Internal Medicine Clinical Cardiac Electrophysiology
DX: I47.1 Supraventricular tachycardia (principal); F17.210 Nicotine dependence, cigarettes, uncomplicated; Z82.49 Family history of ischemic heart disease and other diseases of the circulatory system; Z79.899 Other long term (current) drug therapy; Z79.82 Long term (current) use of aspirin
CPT/HCPCS: 93623; 93613; 93653; C1894; C1769 ×2; C1893; C1730 ×3; C1732; J2250; J2001; J3010; J2704

== ENCOUNTER → 2017-10-16 | Outpatient (CLI) | payer MEDICARE ==
--- NOTE | 2017-10-16 16:05 | BD ---
EXAMINATION TYPE: Axial Bone Density DATE OF EXAM: 10/16/2017 COMPARISON: NONE CLINICAL HISTORY: Postmenopausal Height: 62 Weight: 109.3 FRAX RISK QUESTIONS: Alcohol (3 or more units per day): no Family History (Parent hip fracture): yes mother Glucocorticoids (More than 3mos): no (Ex: prednisone, prednisolone, methylprednisolone, dexamethasone, and hydrocortisone). History of Fracture in Adulthood: no Secondary Osteoporosis: 1. Type 1 Diabetes: no 2. Hyperthyroidism: no 3. Menopause before 45: no 4. Malnutrition: no 5. Chronic liver disease: no Rheumatoid Arthritis: no Current Tobacco Use: no RISK FACTORS HISTORY OF: Family History of Osteoporosis: yes Active: yes Diet low in dairy products/other sources of calcium: yes Postmenopausal woman: age 57 Lost more than 2 inches in height since high school: no MEDICATIONS: none Additional History: EXAM MEASUREMENTS: Bone mineral densitometry was performed using the [employer] System. Bone mineral density as measured about the Lumbar spine is: ----- L1-L4(G/cm2): 0.734 T Score Values are as follows: ----- L2: -4.0 ----- L3: -3.7 ----- L4: -3.6 ----- L1-L4: -3.7 Bone mineral density BASELINE Bone mineral density about the R hip (g/cm2): 0.587 Bone mineral density about the L hip (g/cm2): 0.637 T Score values are as follows: -----R Neck: -3.2 -----L Neck: -2.9 -----R Total: -2.7 -----L Total: -2.4 Bone mineral density BASELINE IMPRESSION: Osteoporosis (T Score less than -2.5). There is increased fracture risk and therapy is usually indicated based on age. Re-Screen 1-2 years. NOTE: T-SCORE=SD OF THE YOUNG ADULT MEAN.
--- NOTE | 2017-10-17 14:58 | MM ---
Reason for exam: screening (asymptomatic). History: Patient is postmenopausal and is nulliparous. Physical Findings: A clinical breast exam by your physician is recommended on an annual basis and results should be correlated with mammographic findings. MG 3D Screening Mammo W/Cad Bilateral CC and MLO view(s) were taken. No prior studies available for comparison. There are scattered fibroglandular densities. Finding: There are vascular calcifications in both breasts. There is no discrete abnormality. ASSESSMENT: Benign, BI-RAD 2 RECOMMENDATION: Routine screening mammogram of both breasts in 1 year.
== END | disposition home or self-care (01) ==
LOC: RADMAMWWP 14:30
PROVIDERS: ATTEND Family Medicine
DX: Z12.31 Encounter for screening mammogram for malignant neoplasm of breast (principal); M81.0 Age-related osteoporosis without current pathological fracture
CPT/HCPCS: 77063; 77067; 77080